=== PATIENT | female | born 1930 | race Caucasian/White ===

== ENCOUNTER 2016-09-18 16:17 | Inpatient (IN) ==
[2016-09-18] MEDS ORDERED: ONDANSETRON 4 MG/2 ML VIAL IV STA (16:39)
[2016-09-18] MEDS ORDERED: MORPHINE 2 MG/1 ML SYRINGE IV STA (16:39)
[2016-09-18] MEDS ORDERED: SODIUM CHLORIDE 0.9% 500 ML IV STA (16:39)
--- NOTE | 2016-09-18 16:45 | Emergency Department Note ---
Arrival - Arrival Chief Complaint: Extremity Injury ED Nursing Triage Note: pt falls a lot. pt's last fall was august 04 per senior living. pt has had pain to lt hip since sunday Mode of Arrival: Stretcher Limitations: No Limitations Source: Patient Time Seen by Provider: 09/18/16 16:28 - History of Present Illness HPI Narrative: The history is limited by the patient's dementia. The patient complains of left lower extremity pain after a fall. She states she fell Sunday and has had pain since. It is not clear from the senior living record exactly when she fell. She had an abrasion to the left forearm/elbow but denies any other injuries. She denies loss of consciousness but cannot tell me exactly what happened to cause her to fall. She does have a history of frequent falls.. She denies any fever, cough, nausea, vomiting or other recent illness or symptoms. Allergies/Adverse Reactions: Allergies Allergy/AdvReac Type Severity Reaction Status Date / Time No Known Allergies Allergy Unverified 03/31/16 10:24 Home Medications: Home Medications Medication Instructions Recorded Confirmed Type Aspirin [Ecotrin] 81 mg PO DAILY 01/25/15 01/25/15 History Carbidopa/Levodopa 25-250 [Sinemet 1 tablet PO TID 01/25/15 01/25/15 History 25-250] Methenamine Hippurate [Hiprex] 1,000 gm PO BID 01/25/15 01/25/15 History Levofloxacin Tab [Levaquin Tab] 500 mg PO DAILY 5 Days 01/27/15 Rx Methenamine Hippurate [Hiprex] 1 gm PO BID tablet 01/27/15 Rx Review of System - Review of System ROS unobtainable: due to mental status - Review of System Constitutional: Absent: fever Respiratory: Absent: cough, respiratory distress Cardiovascular: Absent: chest pain Gastrointestinal: Absent: nausea, vomiting Musculoskeletal: Present: leg pain. Absent: back pain, neck pain Medical,Surgical,& Family Hx - Medical History Cardio: History of: Hypertension (does not presently take meds) Neurology: History of: Dementia, Parkinson's Disease Rheumatology: History of;: Rheumatological Problems (Arthritis) Musculoskeletal: History of: Musculoskeletal Problems (arthritis) Hematology: History of: Anemia - Family History Family History: noncontributory - Social History Smoking Status: Never smoker Frequency of Alcohol Use: None Type of Drug Use: None Exam Physical Examination: GENERAL: Alert. No acute distress. HEENT: Normocephalic and atraumatic. PERRLA. EOMI. There is no nasal drainage. No pharyngeal erythema or exudate. NECK: Normal inspection. Nontender. Full range of motion without pain. LUNGS: No respiratory distress. Clear to auscultation bilaterally, no wheezes, rales or rhonchi. HEART: Regular rate and rhythm. ABDOMEN: Soft, nontender and nondistended with normoactive bowel sounds. Pelvis stable and nontender. BACK: Normal inspection. SKIN: Color normal. Warm and dry. EXTREMITIES: Mild tenderness over the left hip. No ecchymosis, swelling or deformity noted. The left lower extremity is shortened and externally rotated. She has pain on range of motion. The distal extremity is neurovascularly intact. The left hand is contracted due to arthritis. There is a small abrasion on the lateral aspect of the left elbow. No bleeding. No tenderness around the elbow. The remainder of the extremity exam is normal. NEUROLOGICAL/PSYCHIATRIC: Alert and oriented -2 with normal mood and affect. Cranial nerves normal. No gross motor or sensory deficit. Vital Signs: Vital Signs Temperature 97.6 F 09/18/16 16:21 Pulse Rate 89 09/18/16 16:21 Respiratory Rate 18 09/18/16 16:21 Blood Pressure 130/66 09/18/16 16:21 O2 Sat by Pulse Oximetry 99 09/18/16 16:21 Course - Reevaluation(s) Reevaluation #1: I have discussed patient with Dr. Andrea Ramirez and the hospitalist service. The hospitalist service will see and admit. Plan on surgery tomorrow. Lab work is still pending at this point. Time: 18:09 Results - Labs CBC & BMP: 09/18/16 18:03 09/18/16 18:03 Lab Results: I have reviewed the patients labs - Impressions Chest x-ray shows no acute abnormality. X-ray of the left hip shows a femoral neck fracture. EKG shows a normal sinus rhythm at 86. No other obvious abnormality but there is a poor baseline. Disposition Clinical Impression: Hip fracture, left, Dementia, Anemia Case discussed with: patient Disposition: Still a Patient Condition: Stable Time of Disposition: 18:10
[2016-09-18] MEDS ORDERED: MORPHINE 2 MG/1 ML SYRINGE ONE (17:37)
[2016-09-18] MEDS ORDERED: ONDANSETRON 4 MG/2 ML VIAL ONE (17:37)
--- NOTE | 2016-09-18 17:54 | EKG Report ---
Stationary ECG Study [facility] ER Test Date: 09/18/2016 5:55:17 PM Pat Name: TALIB CINTRON Department: Room: Gender: F Continuing Education Specialist: : [id number] Requested by: Minh Overton Order Number: [id number] Reading MD: BERNARDO CROSS Intervals [place] Rate: 86 P: 54 [place]: 162 QRS: 39 QRSD: 75 T: 22 QT: 340 QTc: 384 Interpretive Statements SINUS RHYTHM at 86 bpm [place] WP [employer] Electronically Signed On 09-19-16 07:22:38 CDT by BERNARDO CROSS [email or web address]
--- NOTE | 2016-09-18 18:06 | XRay Report ---
Portable chest. Indication: Respiratory preoperative. Comparison: July 16, 2015. The heart is normal in size. The pulmonary vasculature is normal. The right midlung field demonstrates linear atelectasis. The left lung base demonstrates linear atelectasis. No consolidation, pneumothorax, or pleural effusion. Stable osseous structures. Impression: Mild bilateral linear areas of atelectasis. PROCEDURE INTERPRETED AT [facility] DEPARTMENT OF RADIOLOGY Final Report Signed by: Dr. Ericka Torres
--- NOTE | 2016-09-18 18:07 | XRay Report ---
Left hip, 2 views. Indication: Fall with pain. Comparison: July 16, 2015. There is a complete acute fracture through the left femoral neck, with superior migration of the distal fracture fragment. The femoral head remains seated within the acetabulum. The osseous structures are diffusely demineralized. There is mild acetabular spurring. Impression: Acute left femoral neck fracture. PROCEDURE INTERPRETED AT [facility] [place] DEPARTMENT OF RADIOLOGY Final Report Signed by: Dr. Ericka Torres
[2016-09-18 18:10] LABS: Basophils % 0.5 % (0.0-0.8); Eosinophils # 0.3 10*3/uL (0.0-0.87); Eosinophils % 3.7 % (0.00-10.9); Hematocrit 28.9 VOL% (35.7-47.0); Hemoglobin 9.5 GM/DL (12.0-16.0); Immature Granulocytes % 0.9 %; Immature Granulocytes Absolute 0.07 #; Lymphocytes # 2.1 10*3/uL (1.4-4.0); Lymphocytes % 27.9 % (21.3-54.2); Mean Corpuscular HGB Conc 32.9 GM/DL (32-36); Mean Corpuscular Hemoglobin 30 PG (27-34); Mean Platelet Volume 8.7 FL (9.6-12.0); Monocytes # 0.7 10*3/uL (0.11-0.8); Monocytes % 8.7 % (1.7-12.7); Neutrophils # 4.4 10*3/uL (1.4-7.4); Neutrophils % 58.3 % (38.7-73.9); Platelet Count 405 T/CUMM (130-400); Red Blood Count 3.14 MC/CUMM (3.8-5.5); Red Cell Distribution Width 14.2 % (9.3-17.3); White Blood Count 7.6 T/CUMM (4-12)
[2016-09-18] MEDS ORDERED: ONDANSETRON 4 MG/2 ML VIAL IV PRN (18:20)
[2016-09-18] MEDS ORDERED: MORPHINE 2 MG/1 ML SYRINGE IV PRN (18:20)
[2016-09-18 18:23] LABS: INR 1.1; PT Patient Result 11.8 SECS; Partial Thromboplastin Time 29.3 SECS (0-40)
[2016-09-18 18:37] LABS: Osmolality,Calculated 278.7 MOS/KG (273-304); Potassium 4.4 MMOL/L (3.5-5.1)
--- NOTE | 2016-09-18 19:11 | Hospitalist History & Physical ---
Assessment and Plan (1) Status post fall Status: Acute Current Visit: Yes (2) Fracture of femoral neck, left Status: Acute Current Visit: Yes Qualifiers: Encounter type: initial encounter Fracture type: closed Qualified Code(s) : S72.002A - Fracture of unspecified part of neck of left femur, initial encounter for closed fracture (3) Severe dementia Status: Acute Current Visit: Yes (4) Parkinsons disease Status: Acute Current Visit: Yes (5) Anemia of chronic disease Status: Acute Assessment and plan: Plan: Continue pain control, orthopedics has been consulted probable surgery in a.m. Hold aspirin Continue remainder of her daily medications No acute cardiopulmonary issues that would hold up surgery Awaiting UA and culture, treat UTI if needed Current Visit: Yes (6) Acute UTI Status: Acute Current Visit: Yes History of Present Illness Chief complaint: Fall with left hip pain History of present illness: Ms. Hughes is a 85 year old female who has a resident of [facility] in [place], who has severe dementia, Parkinson's disease, depression who reportedly fell today at the long-term with resultant left femoral neck fracture. No precedent chest pain, shortness of breath, palpitations. No head trauma. The patient is a very poor historian and has poor recall of recent events. There is also report of recent UTI the patient is on Levaquin at the long-term. We are awaiting a urine specimen. At this time patient reports relief of her hip pain. Previously she reported "maybe 6 or 7 out of 10." She denies nausea vomiting or diarrhea. Home Medications Medication Instructions Recorded Confirmed Type Aspirin [Ecotrin] 81 mg PO DAILY 01/25/15 01/25/15 History Carbidopa/Levodopa 25-250 [Sinemet 1 tablet PO TID 01/25/15 01/25/15 History 25-250] Methenamine Hippurate [Hiprex] 1,000 gm PO BID 01/25/15 01/25/15 History Levofloxacin Tab [Levaquin Tab] 500 mg PO DAILY 5 Days 01/27/15 Rx Methenamine Hippurate [Hiprex] 1 gm PO BID tablet 01/27/15 Rx Allergies Allergy/AdvReac Type Severity Reaction Status Date / Time No Known Allergies Allergy Unverified 03/31/16 10:24 Medical,Surgical,& Family Hx - Medical History Cardio: History of: Hypertension (does not presently take meds) Neurology: History of: Dementia, Parkinson's Disease Endocrine: No history of: Diabetes Mellitus (NIDDM) Rheumatology: History of;: Rheumatological Problems (Osteo-arthritis) Musculoskeletal: History of: Musculoskeletal Problems (arthritis) Hematology: History of: Anemia - Surgical History Additional Surgical History: Denies surgical history - Family History Family History: Reports;: Family Hypertension - Social History Smoking Status: Never smoker Frequency of Alcohol Use: None Type of Drug Use: None Marital Status: Unknown Lives With:: [facility] Functional capacity: wheelchair bound (Poor mobility at baseline) Review of systems: A 12 point review of systems is negative except as specified in the HPI Exam - Constitutional Vitals: Period Temp Pulse Resp BP Sys/Kathleen Pulse Ox Last 24 Hr 97.6 F-97.6 F 89-89 18-18 130-130/66-66 99 Exam: EXAM: CONSTITUTIONAL: non toxic, NAD HEENT: NC, AT, OP benign, SHU, EOMI CV: RRR no m/g/r RESP: clear B/L, no w/r/r GI: abd soft, NT, ND, +bowel sounds INTEGUMENTARY: no lesions or rash EXTREMITIES: Left lower extremity externally rotated, pedal pulses intact NEURO: no focal deficits PSYCH: Pleasantly demented Results - Labs CBC & BMP: 09/18/16 18:03 09/18/16 18:03 Lab Results: I have reviewed the past 24 hour labs - EKG EKG shows: sinus rhythm - Diagnostic Findings Procedure: Chest x-ray: image reviewed by me, report reviewed by me, X-ray: image reviewed by me, report reviewed by me Quality Measures - VTE Contraindication to Pharmacological VTE Prophylaxis: High Risk of Bleeding
[2016-09-18] MEDS: SODIUM CHLORIDE 0.9% 1,000 ML IV SCH (21:28)
[2016-09-18] MEDS: METHENAMINE HIPPURATE 1 GM TABLET PO SCH ×2 (21:29→21:35)
[2016-09-18] MEDS: CARBIDOPA/LEVODOPA 25-250 MG TABLET PO SCH (21:29)
[2016-09-19 06:06] LABS: Basophils % 0.7 % (0.0-0.8); Eosinophils # 0.2 10*3/uL (0.0-0.87); Eosinophils % 3.4 % (0.00-10.9); Hematocrit 28.2 VOL% (35.7-47.0); Hemoglobin 9.3 GM/DL (12.0-16.0); Immature Granulocytes % 0.7 %; Immature Granulocytes Absolute 0.04 #; Lymphocytes # 1.8 10*3/uL (1.4-4.0); Lymphocytes % 32.6 % (21.3-54.2); Mean Corpuscular Hemoglobin 30 PG (27-34); Mean Corpuscular Volume 91.9 FL (87-102); Mean Platelet Volume 9.2 FL (9.6-12.0); Monocytes # 0.5 10*3/uL (0.11-0.8); Monocytes % 9.3 % (1.7-12.7); Neutrophils % 53.3 % (38.7-73.9); Platelet Count 375 T/CUMM (130-400); Red Blood Count 3.07 MC/CUMM (3.8-5.5); Red Cell Distribution Width 14.2 % (9.3-17.3); White Blood Count 5.6 T/CUMM (4-12)
[2016-09-19 06:38] LABS: Albumin 2.3 G/DL (3.4-5.0); Bilirubin,Total 0.6 MG/DL (0.2-1.0); Calcium 8.4 MG/DL (8.5-10.1); Magnesium 2.2 MG/DL (1.8-2.4); Potassium 4.5 MMOL/L (3.5-5.1); Total Protein 5.3 G/DL (6.4-8.3)
--- NOTE | 2016-09-19 07:07 | XRay Report ---
Exam: XR chest 1V portable Indication: Shortness of breath Comparison study: 09/18/2016 radiograph Findings: The heart, mediastinum and bony structures are stable from prior. Chronic interstitial changes appear similar to prior. There is no focal consolidation, pneumothorax or pleural effusion identified. Impression: No acute cardiopulmonary process. Chronic interstitial changes. Otherwise, no significant change. PROCEDURE INTERPRETED AT [facility] DEPARTMENT OF RADIOLOGY Final Report Signed by: Bennett Mendez
--- NOTE | 2016-09-19 07:21 | Orthopedic Consult Note ---
History of Present Illness Chief complaint: Left hip fracture History of present illness: Ms. Hughes is a 85 year old female admitted to the hospitalist service following a fall at her local nursing facility reportedly she has had frequent falls does attempt to mobilize with the history is difficult to obtain secondary to underlying dementia after falling yesterday acute onset left hip pain was noted she was brought [facility] emergency room or fracture fractured femoral neck was revealed on plain film. No other injuries or complaints she has been admitted to the medical service. I was asked to evaluate regarding orthopedic injury Examination thin white female she is awake and pleasant however she does appear somewhat confused on questioning she does report that she does mobilize seems somewhat unsure she has no complaints of pain about with range of motion but either upper extremity are about the right lower there is marked discomfort with gentle internal and external rotation about the left hip is no obvious pain or crepitation with the femur need to febrile ankle she will actively flex and extend the toes radiographs confirm a displaced femoral neck fracture left hip. Impression: Femoral neck fracture left hip Plan: I discussed with her the diagnosis and treatment options including indication for endoprosthetic replacement this will allow her to be more comfortable in the bed allow nursing care to be most appropriate also start mobilizing bed to chair. Attempts will be made to locate the next of kin to obtained to let them know and further discuss consent. She will be held n.p.o. this morning for possible endoprosthesis left hip Home Medications Medication Instructions Recorded Confirmed Type Aspirin [Ecotrin] 81 mg PO DAILY 01/25/15 01/25/15 History Carbidopa/Levodopa 25-250 [Sinemet 1 tablet PO TID 01/25/15 01/25/15 History 25-250] Methenamine Hippurate [Hiprex] 1,000 gm PO BID 01/25/15 01/25/15 History Levofloxacin Tab [Levaquin Tab] 500 mg PO DAILY 5 Days 01/27/15 Rx Methenamine Hippurate [Hiprex] 1 gm PO BID tablet 01/27/15 Rx Allergies Allergy/AdvReac Type Severity Reaction Status Date / Time No Known Allergies Allergy Unverified 03/31/16 10:24 Medical,Surgical,& Family Hx - Medical History Cardio: History of: Hypertension (does not presently take meds) Neurology: History of: Dementia, Parkinson's Disease Endocrine: No history of: Diabetes Mellitus (NIDDM) Rheumatology: History of;: Rheumatological Problems (Osteo-arthritis) Musculoskeletal: History of: Musculoskeletal Problems (arthritis) Hematology: History of: Anemia - Family History Family History: Reports;: Family Hypertension - Social History Smoking Status: Never smoker Frequency of Alcohol Use: None Type of Drug Use: None Exam - Constitutional Vitals: Period Temp Pulse Resp BP Sys/Kathleen Pulse Ox Last 24 Hr 97.4 F-98.0 F 80-89 16-18 130-152/61-79 98-99 Results - Labs CBC & BMP: 09/19/16 04:17 09/19/16 04:17
[2016-09-19 07:32] LABS: Apearance,Urine Slightly Hazy (Clear); Bacteria,Urine Few /HPF (Few); Bilirubin,Urine Negative (Negative); Blood, Urine Small mg/dL (Negative); Glucose,Urine (UA) Negative (Negative); Ketones,Urine Negative (Negative); Mucus,Urine Occasional /LPF (Occasional); Nitrite,Urine Positive (Negative); Protein,Urine Negative; RBC,Urine 3 /HPF (0-4); Squamous Epithelial Cell,Urine Occasional /HPF (0-10); Urine Color Yellow (Yellow); Urine Specific Gravity 1.006 (1.001-1.035); Urine Urobilinogen < 2.0 EU/DL (0.2-1.0); WBC,Urine 17 /HPF (0-6)
[2016-09-19] MEDS: METHENAMINE HIPPURATE 1 GM TABLET PO SCH ×2 (08:35→21:56)
[2016-09-19] MEDS: CARBIDOPA/LEVODOPA 25-250 MG TABLET PO SCH ×3 (08:35→21:56)
--- NOTE | 2016-09-19 08:37 | Hospitalist Progress Note ---
Assessment and Plan (1) Fracture of femoral neck, left Status: Acute Assessment and plan: History of orthostatic episodes with frequent falls. Current Visit: Yes Qualifiers: Encounter type: initial encounter Fracture type: closed Qualified Code(s) : S72.002A - Fracture of unspecified part of neck of left femur, initial encounter for closed fracture (2) Severe dementia Status: Chronic Assessment and plan: Associated movement disorder with falls. Prior neurologic evaluation with imaging 18 months ago showed only small vessel disease. Current Visit: Yes Hospitalist: Subjective Interval history: 85-year-old female with severe dementia movement disorder who fell at a nursing care facility with a left femoral neck fracture. Patient has a long history of orthostatic dizziness with several prior visits related to falls. In January 2015 the patient had an extensive neurologic evaluation including MRI imaging showing only small vessel disease. She has been seen by orthopedics and consent for surgical intervention is requested. Patient has a history of chronic recurrent urinary tract infections and was on active treatment at the time of admission. Her vital signs were stable overnight. She is alert this morning but confused as I recall this is her baseline. Exam - Constitutional Vitals: Period Temp Pulse Resp BP Sys/Kathleen Pulse Ox Last 24 Hr 97.4 F-98.6 F 80-89 14-18 127-152/61-84 97-99 General appearance: under weight - Respiratory Respiratory exam: Present: clear to auscultation bilaterally. Absent: rales, rhonchi, wheezes - Cardiovascular Cardiovascular exam: Present: regular rate and rhythm - GI/Abdominal GI/Abdominal exam: Present: normal bowel sounds. Absent: tenderness - Extremities Exam Extremities exam: Absent: edema - Neurological Exam Neurological exam: Present: alert. Absent: oriented X3 Results - Labs CBC & BMP: 09/19/16 04:17 09/19/16 04:17 Quality Measures - VTE Contraindication to Pharmacological VTE Prophylaxis: High Risk of Bleeding
[2016-09-19] MEDS ORDERED: PROPOFOL 200 MG/20 ML VIAL IV ONE (12:35)
[2016-09-19] MEDS ORDERED: ONDANSETRON 4 MG/2 ML VIAL ONE (12:35)
[2016-09-19] MEDS ORDERED: NEOSTIGMINE 10 MG/10 ML VIAL ONE (12:35)
[2016-09-19] MEDS ORDERED: PHENYLEPHRINE 1 MG/10 ML SYRINGE IV ONE (12:35)
[2016-09-19] MEDS ORDERED: LIDOCAINE 2% 5 ML VIAL ONE (12:35)
[2016-09-19] MEDS ORDERED: ROCURONIUM 100 MG/10 ML VIAL IV ONE (12:35)
[2016-09-19] MEDS ORDERED: GLYCOPYRROLATE 0.4 MG/2 ML VIAL ONE (12:35)
[2016-09-19] MEDS ORDERED: MAGNESIUM HYDROXIDE SUSP 30 ML UDCUP PO PRN (13:03)
[2016-09-19] MEDS ORDERED: TEMAZEPAM 7.5 MG CAPSULE PO PRN (13:03)
[2016-09-19] MEDS ORDERED: diphenhydrAMINE CAP 25 MG CAPSULE PO PRN (13:03)
[2016-09-19] MEDS ORDERED: PROMETHAZINE 25 MG/1 ML VIAL IM PRN (13:03)
--- NOTE | 2016-09-19 14:38 | Orthopedic Progress Note ---
Orthopedics - Subjective Interval history: Discussed with his on postop did well discuss postoperative plan he understands and agrees. Exam - Constitutional Vitals: Period Temp Pulse Resp BP Sys/Kathleen Pulse Ox Last 24 Hr 97.4 F-99.0 F 80-95 14-20 127-158/61-84 97-99 Results - Labs CBC & BMP: 09/19/16 04:17 09/19/16 04:17 Quality Measures - VTE Contraindication to Pharmacological VTE Prophylaxis: High Risk of Bleeding
[2016-09-19] MEDS ORDERED: LACTATED RINGERS 1,000 ML IV ONE (14:40)
[2016-09-19] MEDS ORDERED: SEVOFLURANE 1 UNIT/15 MINUTE INH ONE (14:40)
[2016-09-19] MEDS ORDERED: fentaNYL 100 MCG/2 ML VIAL ONE (14:40)
[2016-09-19] MEDS ORDERED: ACETAMINOPHEN 1,000 MG/100 ML VIAL IV ONE (14:40)
[2016-09-19] MEDS ORDERED: ONDANSETRON 4 MG/2 ML VIAL IV PRN (14:53)
[2016-09-19] MEDS ORDERED: HYDROmorphone 2 MG/1 ML VIAL IV PRN (14:53)
[2016-09-19] MEDS ORDERED: LACTATED RINGERS 1,000 ML IV SCH (15:00)
--- NOTE | 2016-09-19 15:30 | XRay Report ---
XR hip 1V LT Indication: Left SAIGE. Left hip one view: Since yesterday, the patient has undergone left SAIGE. Alignment is anatomic. No periprosthetic fracture. Surgical drains, skin rachel overlie the operative site. Impression: Anatomic alignment following left SAIGE. PROCEDURE INTERPRETED AT [facility] DEPARTMENT OF RADIOLOGY Final Report Signed by: Drew Leahy M.D.
[2016-09-19] MEDS: SODIUM CHLORIDE 0.9% 1,000 ML IV SCH (16:10)
[2016-09-19] MEDS: RIVASTIGMINE 3 MG CAPSULE PO SCH (17:00)
--- NOTE | 2016-09-19 21:30 | Operative Note ---
DATE OF SURGERY: 09/19/2016 PREOPERATIVE DIAGNOSIS: FEMORAL NECK FRACTURE, LEFT HIP. POSTOPERATIVE DIAGNOSIS: SAME. OPERATIVE PROCEDURE: Bipolar, left hip. SURGEON: Jay Mendez Jr., MD ANESTHESIA: General. INDICATIONS: An 85-year-old white female, resident of a local nursing facility, is a poor ambulator, reportedly had fallen in the recent days. Her son reports probably more like a few weeks ago. She presented to [facility] Emergency Room yesterday with acute onset of hip pain. Radiographs confirmed a displaced femoral neck fracture. I discussed with she and her family the indications for operativ e repair. OPERATIVE PROCEDURE: The patient was taken to the operating room and under general anesthetic, posit ioned in the right lateral decubitus position. The left hip and lower extremity prepped and draped i n usual sterile manner. She received Ancef preoperatively. A curvilinear incision was made over the posterolateral aspect of the left hip. Sharp dissection was carried down through the skin and subcu taneous tissue. The IT band and gluteus were split. The hip was internally rotated, and the short r otators and capsule were reflected off the back of the proximal femur and tagged for later repair. T he femoral neck cut was freshened with a saw, the head removed and sized to a 48, sequential reamings and broachings of the canal, ultimately selecting a basic hip fracture stem size 2 for cementation. A +5 head for the bipolar head was selected as well. The trial components were removed using standa rd techniques. The femoral stem was cemented into place. After the cement hardened, the +5 and bipo lar were secured on the taper and relocated. The hip was stable through range of motion. The wounds were then irrigated and closed in a standard fashion over two 1/8-inch Hemovac drains using #1 Vicry l for the capsule and gluteal layers, 2-0 Vicryl for subcutaneous layers and staple for skin. DRAINS: x2 COUNTS: Correct. ESTIMATED BLOOD LOSS: 100 mL. Of note, clinical impression was the fracture was subacute likely a couple of weeks old based on the lack of hematoma.
[2016-09-19] MEDS: DOCUSATE SODIUM 100 MG CAPSULE PO SCH (21:56)
[2016-09-20] MEDS: FONDAPARINUX 2.5 MG/0.5 ML SYRINGE SUBCUT SCH (06:19)
[2016-09-20 06:23] LABS: Basophils % 0.4 % (0.0-0.8); Eosinophils # 0.1 10*3/uL (0.0-0.87); Eosinophils % 1.8 % (0.00-10.9); Hematocrit 23.7 VOL% (35.7-47.0); Hemoglobin 7.7 GM/DL (12.0-16.0); Immature Granulocytes % 1.4 %; Lymphocytes # 1.4 10*3/uL (1.4-4.0); Lymphocytes % 19.1 % (21.3-54.2); Mean Corpuscular HGB Conc 32.5 GM/DL (32-36); Mean Corpuscular Hemoglobin 30 PG (27-34); Mean Corpuscular Volume 93.3 FL (87-102); Mean Platelet Volume 8.9 FL (9.6-12.0); Monocytes # 0.7 10*3/uL (0.11-0.8); Monocytes % 9.2 % (1.7-12.7); Neutrophils % 68.1 % (38.7-73.9); Platelet Count 288 T/CUMM (130-400); Red Blood Count 2.54 MC/CUMM (3.8-5.5); Red Cell Distribution Width 14.1 % (9.3-17.3); White Blood Count 7.4 T/CUMM (4-12)
[2016-09-20 06:51] LABS: Calcium 8.3 MG/DL (8.5-10.1); Osmolality,Calculated 281.3 MOS/KG (273-304)
[2016-09-20] MEDS ORDERED: SODIUM CHLORIDE 0.9% 250 ML IV PRN (08:58)
--- NOTE | 2016-09-20 08:58 | Orthopedic Progress Note ---
Orthopedics - Subjective Interval history: Drain removed comfortable hemoglobin 7.7 this morning will need 2 units PRBCs secondary to perioperative blood loss anemia overlying chronic anemia. Will work on starting bed to chair transfers as well. Exam - Constitutional Vitals: Period Temp Pulse Resp BP Sys/Kathleen Pulse Ox Last 24 Hr 97.3 F-99.0 F 68-95 14-20 100-160/47-75 94-100 Results - Labs CBC & BMP: 09/20/16 06:09 09/20/16 06:09 Quality Measures - VTE Contraindication to Pharmacological VTE Prophylaxis: High Risk of Bleeding
[2016-09-20] MEDS: RIVASTIGMINE 3 MG CAPSULE PO SCH ×2 (09:07→16:07)
[2016-09-20] MEDS: DOCUSATE SODIUM 100 MG CAPSULE PO SCH ×2 (09:08→21:03)
[2016-09-20] MEDS: MULTIVITAMIN (CENTRUM) TABLET PO SCH (09:08)
[2016-09-20] MEDS: METHENAMINE HIPPURATE 1 GM TABLET PO SCH ×2 (09:08→21:03)
[2016-09-20] MEDS: ASPIRIN EC 81 MG TABLET PO SCH (09:08)
[2016-09-20] MEDS: CARBIDOPA/LEVODOPA 25-250 MG TABLET PO SCH ×3 (09:08→21:03)
[2016-09-20] MEDS: ESCITALOPRAM 10 MG TABLET PO SCH (09:08)
--- NOTE | 2016-09-20 09:32 | Hospitalist Progress Note ---
Assessment and Plan (1) Fracture of femoral neck, left Status: Acute Assessment and plan: History of orthostatic episodes with frequent falls. Current Visit: Yes Qualifiers: Encounter type: initial encounter Fracture type: closed Qualified Code(s) : S72.002A - Fracture of unspecified part of neck of left femur, initial encounter for closed fracture (2) Severe dementia Status: Chronic Assessment and plan: Associated movement disorder with falls. Prior neurologic evaluation with imaging 18 months ago showed only small vessel disease. 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 She has a long history of orthostatic dizziness and frequent falls. Her vital signs overnight were stable she is awake and alert. She is anticipated for transfusion today for postoperative anemia. Exam - Constitutional Vitals: Period Temp Pulse Resp BP Sys/Kathleen Pulse Ox Last 24 Hr 97.3 F-99.0 F 68-95 14-20 100-160/47-75 94-100 General appearance: under weight - Respiratory Respiratory exam: Present: clear to auscultation bilaterally. Absent: rales, rhonchi, wheezes - Cardiovascular Cardiovascular exam: Present: regular rate and rhythm - GI/Abdominal GI/Abdominal exam: Present: normal bowel sounds. Absent: tenderness - Extremities Exam Extremities exam: Absent: edema - Neurological Exam Neurological exam: Present: alert. Absent: oriented X3 Results - Labs CBC & BMP: 09/20/16 06:09 09/20/16 06:09 Quality Measures - VTE Contraindication to Pharmacological VTE Prophylaxis: High Risk of Bleeding
--- NOTE | 2016-09-20 13:33 | Pathology Report from [facility] ---
[facility] [place] ACCESSION # : [id number] PATIENT NAME : Talib Hughes ORDERING DR : TOÑITO LANZA JR, MD CLINICAL HX: Fractured left hip POST-OP DX: Same SPECIMEN INFO: Left hip/femur head tissue GROSS DESCRIPTION: The specimen is received in formalin labeled with the patients name and consists of a fractured femoral head measuring 4.5 x 4.5 x 3.8 cm. The articular surface is predominately smooth, hardin with scattered chalky white areas noted. The area of fracture is shaggy and hyperemic with no softening appreciated. Business Risk Consultant tissue submitted in one cassette following decalcification. DIAGNOSIS FOR TALIB HUGHES: LIP FEMORAL HEAD TISSUE: Trabecular bone with hemorrhagic marrow consistent with clinical history of fracture. No evidence of malignancy. COLLECTED DATE: 09/19/2016 [facility] REPORT DATE: 09/20/2016 ELECTRONICALLY SIGNED BY: Keren Ardon III, M.D. 09/20/2016 - 8:49:05 MTDKamilah
[2016-09-20] MEDS: SODIUM CHLORIDE 0.9% 1,000 ML IV SCH ×2 (15:55→19:30)
[2016-09-21 05:05] LABS: Basophils # 0.1 10*3/uL (0.0-0.2); Basophils % 0.5 % (0.0-0.8); Eosinophils # 0.2 10*3/uL (0.0-0.87); Eosinophils % 1.8 % (0.00-10.9); Hematocrit 32.3 VOL% (35.7-47.0); Immature Granulocytes % 1.3 %; Immature Granulocytes Absolute 0.13 #; Lymphocytes # 1.6 10*3/uL (1.4-4.0); Lymphocytes % 16.6 % (21.3-54.2); Mean Corpuscular HGB Conc 34.1 GM/DL (32-36); Mean Corpuscular Hemoglobin 31 PG (27-34); Mean Corpuscular Volume 90.5 FL (87-102); Mean Platelet Volume 9.3 FL (9.6-12.0); Monocytes # 0.9 10*3/uL (0.11-0.8); Monocytes % 8.8 % (1.7-12.7); Neutrophils # 6.9 10*3/uL (1.4-7.4); Platelet Count 254 T/CUMM (130-400); Red Blood Count 3.57 MC/CUMM (3.8-5.5); Red Cell Distribution Width 14.1 % (9.3-17.3); White Blood Count 9.7 T/CUMM (4-12)
[2016-09-21] MEDS: FONDAPARINUX 2.5 MG/0.5 ML SYRINGE SUBCUT SCH (06:16)
[2016-09-21] MEDS: CYANOCOBALAMIN 1000 MCG/1 ML VIAL IM SCH ×45 (06:23→07:13)
--- NOTE | 2016-09-21 09:08 | Hospitalist Progress Note ---
Assessment and Plan (1) Fracture of femoral neck, left Status: Acute Assessment and plan: History of orthostatic episodes with frequent falls. Surgical repair 19 September Current Visit: Yes Qualifiers: Encounter type: initial encounter Fracture type: closed Qualified Code(s) : S72.002A - Fracture of unspecified part of neck of left femur, initial encounter for closed fracture (2) Severe dementia Status: Chronic Assessment and plan: Associated movement disorder with falls. Prior neurologic evaluation with imaging 18 months ago showed only small vessel disease. Current Visit: Yes (3) UTI (urinary tract infection) Status: Chronic Assessment and plan: Multiply recurrent with multiple courses of treatment. Current culture positive for gram-negative rods sensitivities and identification pending. 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 She has had a chronic recurrent urinary tract infection with several courses of outpatient treatment and currently has a gram-negative joon on urine culture. Patient was transfused yesterday with appropriate response in her hemoglobin level. Vital signs are stable overnight. Exam - Constitutional Vitals: Period Temp Pulse Resp BP Sys/Kathleen Pulse Ox Last 24 Hr 97.0 F-99.9 F 50-104 16-100 99-177/58-115 95-99 General appearance: under weight - Respiratory Respiratory exam: Present: clear to auscultation bilaterally. Absent: rales, rhonchi, wheezes - Cardiovascular Cardiovascular exam: Present: regular rate and rhythm - GI/Abdominal GI/Abdominal exam: Present: normal bowel sounds. Absent: tenderness - Extremities Exam Extremities exam: Absent: edema - Neurological Exam Neurological exam: Present: alert. Absent: oriented X3 Results - Labs CBC & BMP: 09/21/16 03:06 09/20/16 06:09 Labs: Urine culture gram-negative joon identification and sensitivity pending Quality Measures - VTE Contraindication to Pharmacological VTE Prophylaxis: High Risk of Bleeding
[2016-09-21] MEDS: METHENAMINE HIPPURATE 1 GM TABLET PO SCH ×2 (10:08→21:43)
[2016-09-21] MEDS: RIVASTIGMINE 3 MG CAPSULE PO SCH ×2 (10:08→16:11)
[2016-09-21] MEDS: CARBIDOPA/LEVODOPA 25-250 MG TABLET PO SCH ×3 (10:08→21:43)
[2016-09-21] MEDS: DOCUSATE SODIUM 100 MG CAPSULE PO SCH ×2 (10:08→21:43)
[2016-09-21] MEDS: MULTIVITAMIN (CENTRUM) TABLET PO SCH (10:09)
[2016-09-21] MEDS: ASPIRIN EC 81 MG TABLET PO SCH (10:09)
[2016-09-21] MEDS: SODIUM CHLORIDE 0.9% 1,000 ML IV SCH (10:09)
[2016-09-21] MEDS: ESCITALOPRAM 10 MG TABLET PO SCH (10:09)
--- NOTE | 2016-09-21 13:22 | Orthopedic Progress Note ---
Orthopedics - Subjective Interval history: Hemoglobin 11 comfortable mobilizing bed to chair believe she can most likely go back to the [facility] tomorrow this weekend Exam - Constitutional Vitals: Period Temp Pulse Resp BP Sys/Kathleen Pulse Ox Last 24 Hr 97.7 F-99.6 F 50-104 16-100 99-177/59-115 95-99 Results - Labs CBC & BMP: 09/21/16 03:06 09/20/16 06:09 Quality Measures - VTE Contraindication to Pharmacological VTE Prophylaxis: High Risk of Bleeding
[2016-09-22 05:58] LABS: Basophils % 0.2 % (0.0-0.8); Eosinophils # 0.4 10*3/uL (0.0-0.87); Eosinophils % 4.4 % (0.00-10.9); Hematocrit 29.6 VOL% (35.7-47.0); Hemoglobin 10.1 GM/DL (12.0-16.0); Immature Granulocytes % 1.2 %; Lymphocytes # 1.7 10*3/uL (1.4-4.0); Lymphocytes % 21.3 % (21.3-54.2); Mean Corpuscular HGB Conc 34.1 GM/DL (32-36); Mean Corpuscular Hemoglobin 31 PG (27-34); Mean Corpuscular Volume 91.1 FL (87-102); Monocytes # 0.7 10*3/uL (0.11-0.8); Monocytes % 8.4 % (1.7-12.7); Neutrophils # 5.2 10*3/uL (1.4-7.4); Neutrophils % 64.5 % (38.7-73.9); Platelet Count 250 T/CUMM (130-400); Red Blood Count 3.25 MC/CUMM (3.8-5.5); Red Cell Distribution Width 14.8 % (9.3-17.3)
[2016-09-22] MEDS: FONDAPARINUX 2.5 MG/0.5 ML SYRINGE SUBCUT SCH (06:07)
--- NOTE | 2016-09-22 08:26 | Orthopedic Progress Note ---
Orthopedics - Subjective Interval history: ok from ortho for dc Exam - Constitutional Vitals: Period Temp Pulse Resp BP Sys/Kathleen Pulse Ox Last 24 Hr 97.3 F-98.9 F 78-92 16-20 120-144/57-68 95-99 Results - Labs CBC & BMP: 09/22/16 05:43 09/20/16 06:09 Quality Measures - VTE Contraindication to Pharmacological VTE Prophylaxis: High Risk of Bleeding Specialty Discharge - Follow Up or Referrals Follow up with: Jay Mendez Jr., MD [Physician] - (mobile x-ray follow-up sent to dr. radha corley office in 4 weeks for review and further orders)
[2016-09-22] MEDS: DOCUSATE SODIUM 100 MG CAPSULE PO SCH (10:23)
[2016-09-22] MEDS: MULTIVITAMIN (CENTRUM) TABLET PO SCH (10:23)
[2016-09-22] MEDS: ASPIRIN EC 81 MG TABLET PO SCH (10:23)
[2016-09-22] MEDS: RIVASTIGMINE 3 MG CAPSULE PO SCH (10:23)
[2016-09-22] MEDS: CARBIDOPA/LEVODOPA 25-250 MG TABLET PO SCH ×2 (10:24→15:14)
[2016-09-22] MEDS: METHENAMINE HIPPURATE 1 GM TABLET PO SCH (10:24)
[2016-09-22] MEDS: ESCITALOPRAM 10 MG TABLET PO SCH (10:24)
--- NOTE | 2016-09-22 11:35 | Discharge Summary ---
Hospital Course - Hospital Course Hospital Course: 85 year old female who is a resident of [facility] in [place], with h/o severe dementia, Parkinson's disease, depression who reportedly fell at the shelter with resultant left femoral neck fracture. Due to severe dementia, she had poor recall of recent events. Orthopedics were consulted because of her hip fracture. She underwent hip surgery and had an unremarkable postoperative course. She had acute anemia of surgical blood loss and was transfused with packed red blood cells and her hematocrit remained stable. Orthopedics has seen her and are recommending discharge back to shelter. She received DVT prophylaxis with Arixtra in the hospital and will be continued for about total of 35 days at the shelter. There was also report of recent UTI and the patient was on Levaquin at the shelter. She has a history of recurrent UTIs. Patient is otherwise stable to be discharged back to shelter. - Time spent with patient Time with patient DS: Less than 30 minutes Diagnosis - Discharge Diagnosis (1) Dementia Status: Chronic (2) Hip fracture, left Status: Resolved Specialty Discharge - Follow Up or Referrals Follow up with: Jay Mendez Jr., MD [Physician] - (mobile x-ray follow-up sent to dr. radha corley office in 4 weeks for review and further orders) Discharge Plan - Discharge Data Disposition: Disch/Xfer to Snf Condition at Discharge: Stable Discharge Diet: regular diet Activity: resume usual activities as tolerated Hygiene: no restrictions Weight Bearing at Discharge: weight bear as tolerated - Discharge Medications New Docusate Sodium Cap [Colace Cap] 100 mg PO BID capsule Fondaparinux [Arixtra] 2.5 mg SUBCUT Q24H #30 syringe HYDROcodone/ACETAMIN 5-325 [Forrest 5-325] 1 tablet PO Q4H PRN #30 tablet PRN Reason: Pain Moderate (4-7) Magnesium Hydroxide Susp [Milk of Magnesia] 30 ml PO Q6H PRN #1 bottle PRN Reason: Constipation Methenamine Hippurate [Hiprex] 1 gm PO BID #60 tablet Continue Carbidopa/Levodopa 25-250 [Sinemet 25-250] 1 tablet PO TID Aspirin [Ecotrin] 81 mg PO DAILY Multivitamin (Centrum) [Centrum Tab] 1 tablet PO DAILY Escitalopram Oxalate [Lexapro] 5 mg PO DAILY Cyanocobalamin Inj [Vitamin B12 Inj] 1,000 mcg IM Q90D Rivastigmine Cap [Exelon Cap] 3 mg PO BID W/MEALS - Follow Up or Referral Follow Up: Jay Mendez Jr., MD [Physician] - (mobile x-ray follow-up sent to dr. radha corley office in 4 weeks for review and further orders) - Forms/Instructions Instructions: Hip Fracture (GEN) Exam - Constitutional Vitals: Period Temp Pulse Resp BP Sys/Kathleen Pulse Ox Last 24 Hr 96.9 F-97.9 F 78-88 16-18 120-161/57-79 95-99 General appearance: normal weight, no acute distress - Head Head exam: Present: normal inspection, normocephalic, atraumatic - Eye Eye exam: Present: EOMI Pupils: Present: SHU - ENT ENT exam: Present: normal exam - Neck Neck exam: Present: normal inspection - Respiratory Respiratory exam: Present: clear to auscultation bilaterally - Cardiovascular Cardiovascular exam: Present: regular rate and rhythm - GI/Abdominal GI/Abdominal exam: Present: normal bowel sounds - Extremities Exam Extremities exam: Present: normal inspection - Back Exam Back exam: Present: normal inspection - Skin Skin exam: Present: normal color, warm Discharge Results Labs on day of discharge: Labs from last 24 hours 09/22/16 05:43 WBC 8.0 RBC 3.25 L Hgb 10.1 L Hct 29.6 L MCV 91.1 MCH 31 MCHC 34.1 RDW 14.8 Plt Count 250 MPV 9.0 L Neut % (Auto) 64.5 Lymph % (Auto) 21.3 [place] % (Auto) 8.4 Eos % (Auto) 4.4 Baso % (Auto) 0.2 Neut # (Auto) 5.2 Lymph # (Auto) 1.7 [place] # (Auto) 0.7 Eos # (Auto) 0.4 Baso # (Auto) 0.0 Immature Gran % 1.2 Nucleated RBC % 0.0 Immature Gran # 0.10 Nucleated RBCs # 0.00 - Imaging and Cardiology Procedure: X-ray: report reviewed by me (Anatomic alignment following left SAIGE on Hip X-ray.) DS: Provider Date of admission: 09/18/16 18:17 Primary care physician: . No PCP Attending physician on admission: Moisés Hernandez DO Consults: 07/10/17 18:20 Consult to Physician [CONS] Routine Comment: Consulting Provider: Jay Mendez Jr. Consulting Provider Notified: Yes When should Consulting Provider be notified: Now Person Notified: garrett called Date Notified: 09/19/16 Time Notified: 08:01 Consult Notification Comment: Dr Radha Schwab called and he said he was notified about the pt in er and he would see him in the morning 09/19/16 13:03 Consult to Case Mgmt/Social Srvs [CONS] Routine Reason for Case Mgmt/Social Srvs: Rehab Home Health Equipment Consult Comment: Bedside Commode, CPM, Walker Consult to Occupational Therapy [CONS] Routine Reason for Occupational Therapy: Evaluate and Treat Consult Comment: ADL's Consult to Physical Therapy [CONS] Routine Reason for Physical Therapy: Evaluate and Treat Gait Training Discharging clinician: Keith Parra MD
[2016-09-22 11:45] VITALS: BP 184/89
[2016-09-22] MEDS ORDERED: BISACODYL 10 MG SUPP RECTAL ONE (13:05)
[2016-12-12] MEDS ORDERED: CYANOCOBALAMIN 1000 MCG/1 ML VIAL IM SCH (09:00)
== END 2016-09-22 16:20 | DRG 470 ==
LOC: EDUNIT# → EDBD → N.ED 16:17 → SUATTDRO 18:17 → N.EDINP 18:17 → N.3E 19:45
PROVIDERS: ADMIT Internal Medicine; ATTEND Hospitalist

== ENCOUNTER 2017-04-16 05:47 | Inpatient (IN) ==
[2017-04-16] MEDS ORDERED: SODIUM CHLORIDE 0.9% 1,000 ML IV STA (06:11)
[2017-04-16 06:31] LABS: Apearance,Urine CLOUDY (Clear); Bacteria,Urine Many /HPF (Few); Basophils % 0.3 % (0.0-0.8); Bilirubin,Urine Negative (Negative); Blood, Urine Moderate mg/dL (Negative); Eosinophils % 0.1 % (0.00-10.9); Glucose,Urine (UA) 150 mg/dL (Negative); Hematocrit 34.4 VOL% (35.7-47.0); Hemoglobin 10.7 GM/DL (12.0-16.0); Immature Granulocytes % 1.9 %; Ketones,Urine Negative (Negative); Lymphocytes # 1.9 10*3/uL (1.4-4.0); Lymphocytes % 17.9 % (21.3-54.2); Mean Corpuscular HGB Conc 31.1 GM/DL (32-36); Mean Corpuscular Hemoglobin 30 PG (27-34); Mean Corpuscular Volume 95.3 FL (87-102); Mean Platelet Volume 9.8 FL (9.6-12.0); Monocytes # 0.2 10*3/uL (0.11-0.8); Monocytes % 1.8 % (1.7-12.7); Neutrophils # 8.3 10*3/uL (1.4-7.4); Nitrite,Urine Positive (Negative); Platelet Count 215 T/CUMM (130-400); Protein,Urine 100 MG/DL; RBC,Urine 62 /HPF (0-4); Red Blood Count 3.61 MC/CUMM (3.8-5.5); Red Cell Distribution Width 14.6 % (9.3-17.3); Urine Color Yellow (Yellow); Urine Specific Gravity 1.011 (1.001-1.035); Urine Urobilinogen < 2.0 EU/DL (0.2-1.0); WBC,Urine 270 /HPF (0-6); White Blood Count 10.6 T/CUMM (4-12)
[2017-04-16 06:35] LABS: Barbiturates Screen,Urine Negative (Negative); Benzodiazepines Screen,Urine Negative (Negative); Cannabinoid Screen,Urine Negative (Negative); Opiate Screen,Urine Negative (Negative); Phencyclidine Screen,Urine Negative (Negative)
[2017-04-16 06:37] LABS: INR 1.1; PT Patient Result 11.4 SECS; Partial Thromboplastin Time 27.8 SECS (0-40)
[2017-04-16 06:51] LABS: Albumin 2.6 G/DL (3.4-5.0); Bilirubin,Total 0.4 MG/DL (0.2-1.0); Calcium 7.9 MG/DL (8.5-10.1); Osmolality,Calculated 299.8 MOS/KG (273-304); Potassium 3.8 MMOL/L (3.5-5.1); Total Protein 5.7 G/DL (6.4-8.3)
[2017-04-16] MEDS ORDERED: cefTRIAXone 1,000 MG in SODIUM CHLORIDE 0.9% 100 ML IV STA (07:41)
[2017-04-16] MEDS ORDERED: cefTRIAXone 1,000 MG VIAL ONE (07:47)
[2017-04-16] MEDS ORDERED: DOCUSATE SODIUM 100 MG CAPSULE PO PRN (08:38)
[2017-04-16] MEDS ORDERED: guaiFENesin/DM ER 600-30 MG TABLET PO PRN (08:38)
[2017-04-16] MEDS ORDERED: MORPHINE 2 MG/1 ML SYRINGE IV PRN (08:38)
[2017-04-16 08:39] LABS: Lactic Acid 5.4 MMOL/L (0.4-2.0)
[2017-04-16] MEDS ORDERED: SODIUM CHLORIDE 0.9% 1,000 ML IV ONE (09:06)
[2017-04-16] MEDS ORDERED: MAGNESIUM HYDROXIDE SUSP 30 ML UDCUP PO PRN (09:42)
[2017-04-16] MEDS: cefTRIAXone 1,000 MG in SYRINGE 1 EACH IV SCH (13:59)
[2017-04-16] MEDS: metroNIDAZOLE INJ 500 MG in PREMIX 1 EACH IV SCH ×2 (14:08→21:14)
[2017-04-16] MEDS: PANTOPRAZOLE 40 MG VIAL IV SCH (14:09)
[2017-04-16] MEDS: ENOXAPARIN 40 MG/0.4 ML SYRINGE SUBCUT SCH (14:09)
[2017-04-16] MEDS: SODIUM CHLORIDE 0.9% 1,000 ML IV SCH (14:09)
[2017-04-16] MEDS: CARBIDOPA/LEVODOPA 25-250 MG TABLET PO SCH ×2 (15:46→16:00)
[2017-04-16] MEDS: RIVASTIGMINE 3 MG CAPSULE PO SCH (15:59)
[2017-04-16 19:06] LABS: Bacteria Wet Mount Trace /HPF; Clue Cells None Seen /HPF (None Seen); Epithelial Cell Wet Mount Few /HPF (Few/HPF); RBC Wet Mount Rare /HPF; Trichomonas Wet Mount None Seen /HPF (None Seen); WBC Wet Mount Few /HPF; Yeast Wet Mount None Seen /HPF (None Seen)
[2017-04-16] MEDS: DOCUSATE SODIUM 100 MG CAPSULE PO SCH (21:13)
[2017-04-17] MEDS: SODIUM CHLORIDE 0.9% 1,000 ML IV SCH ×2 (00:30→13:59)
[2017-04-17 07:19] LABS: Basophils % 0.1 % (0.0-0.8); Hematocrit 30.2 VOL% (35.7-47.0); Hemoglobin 9.7 GM/DL (12.0-16.0); Immature Granulocytes % 1.1 %; Immature Granulocytes Absolute 0.09 #; Lymphocytes # 2.3 10*3/uL (1.4-4.0); Lymphocytes % 27.8 % (21.3-54.2); Mean Corpuscular HGB Conc 32.1 GM/DL (32-36); Mean Corpuscular Hemoglobin 30 PG (27-34); Mean Corpuscular Volume 92.6 FL (87-102); Mean Platelet Volume 9.8 FL (9.6-12.0); Monocytes # 0.8 10*3/uL (0.11-0.8); Neutrophils # 5.2 10*3/uL (1.4-7.4); Platelet Count 208 T/CUMM (130-400); Red Blood Count 3.26 MC/CUMM (3.8-5.5); Red Cell Distribution Width 14.8 % (9.3-17.3); White Blood Count 8.4 T/CUMM (4-12)
[2017-04-17 07:44] LABS: Calcium 7.8 MG/DL (8.5-10.1); Osmolality,Calculated 289.6 MOS/KG (273-304); Potassium 3.5 MMOL/L (3.5-5.1)
[2017-04-17] MEDS: RIVASTIGMINE 3 MG CAPSULE PO SCH ×2 (08:25→16:25)
[2017-04-17] MEDS: MULTIVITAMIN (CENTRUM) TABLET PO SCH (08:26)
[2017-04-17] MEDS: DOCUSATE SODIUM 100 MG CAPSULE PO SCH (08:26)
[2017-04-17] MEDS: ASPIRIN EC 81 MG TABLET PO SCH (08:26)
[2017-04-17] MEDS: cefTRIAXone 1,000 MG in SYRINGE 1 EACH IV SCH (08:26)
[2017-04-17] MEDS: ENOXAPARIN 40 MG/0.4 ML SYRINGE SUBCUT SCH (08:26)
[2017-04-17] MEDS: PANTOPRAZOLE 40 MG VIAL IV SCH (08:27)
[2017-04-17] MEDS: metroNIDAZOLE INJ 500 MG in PREMIX 1 EACH IV SCH (08:27)
[2017-04-17] MEDS: CARBIDOPA/LEVODOPA 25-250 MG TABLET PO SCH ×3 (08:37→16:25)
[2017-04-17] MEDS ORDERED: ZINC OXIDE PASTE 113 GM TUBE TOP PRN (12:13)
[2017-04-17] MEDS: SODIUM CHLORIDE 0.45% 1,000 ML IV SCH (13:58)
[2017-04-18] MEDS: SODIUM CHLORIDE 0.45% 1,000 ML IV SCH ×2 (01:40→17:15)
[2017-04-18] MEDS: DOCUSATE SODIUM 100 MG CAPSULE PO SCH ×3 (02:53→22:04)
[2017-04-18 06:56] LABS: Osmolality,Calculated 280.1 MOS/KG (273-304); Potassium 3.3 MMOL/L (3.5-5.1)
[2017-04-18] MEDS ORDERED: POTASSIUM CHLORIDE 20 MEQ TABLET PO PRN (07:39)
[2017-04-18] MEDS: cefTRIAXone 1,000 MG in SYRINGE 1 EACH IV SCH (08:37)
[2017-04-18] MEDS: PANTOPRAZOLE 40 MG VIAL IV SCH (08:40)
[2017-04-18] MEDS: ENOXAPARIN 40 MG/0.4 ML SYRINGE SUBCUT SCH (08:42)
[2017-04-18] MEDS: ASPIRIN EC 81 MG TABLET PO SCH (08:44)
[2017-04-18] MEDS: CARBIDOPA/LEVODOPA 25-250 MG TABLET PO SCH ×3 (08:45→17:24)
[2017-04-18] MEDS: MULTIVITAMIN (CENTRUM) TABLET PO SCH (08:45)
[2017-04-18] MEDS: RIVASTIGMINE 3 MG CAPSULE PO SCH ×2 (10:17→17:24)
[2017-04-18] MEDS ORDERED: ACETAMINOPHEN 500 MG TABLET PO PRN (14:22)
[2017-04-19] MEDS: SODIUM CHLORIDE 0.45% 1,000 ML IV SCH (06:25)
[2017-04-19 07:03] LABS: Basophils % 0.2 % (0.0-0.8); Eosinophils % 0.3 % (0.00-10.9); Hematocrit 30.3 VOL% (35.7-47.0); Immature Granulocytes % 1.1 %; Immature Granulocytes Absolute 0.12 #; Lymphocytes # 1.6 10*3/uL (1.4-4.0); Lymphocytes % 15.5 % (21.3-54.2); Mean Corpuscular Hemoglobin 30 PG (27-34); Mean Corpuscular Volume 89.6 FL (87-102); Mean Platelet Volume 9.3 FL (9.6-12.0); Monocytes # 0.9 10*3/uL (0.11-0.8); Monocytes % 8.2 % (1.7-12.7); Neutrophils # 7.8 10*3/uL (1.4-7.4); Neutrophils % 74.7 % (38.7-73.9); Platelet Count 265 T/CUMM (130-400); Red Blood Count 3.38 MC/CUMM (3.8-5.5); Red Cell Distribution Width 14.2 % (9.3-17.3); White Blood Count 10.5 T/CUMM (4-12)
[2017-04-19 07:31] LABS: Calcium 8.1 MG/DL (8.5-10.1); Osmolality,Calculated 279.4 MOS/KG (273-304); Potassium 3.2 MMOL/L (3.5-5.1)
[2017-04-19] MEDS ORDERED: amLODIPine 5 MG TABLET PO SCH (09:00)
[2017-04-19] MEDS ORDERED: POTASSIUM CHLORIDE 20 MEQ TABLET PO ONE (09:00)
[2017-04-19] MEDS: RIVASTIGMINE 3 MG CAPSULE PO SCH (09:48)
[2017-04-19] MEDS: CARBIDOPA/LEVODOPA 25-250 MG TABLET PO SCH (09:48)
[2017-04-19] MEDS: DOCUSATE SODIUM 100 MG CAPSULE PO SCH (09:48)
[2017-04-19] MEDS: ENOXAPARIN 40 MG/0.4 ML SYRINGE SUBCUT SCH (09:49)
[2017-04-19] MEDS: MULTIVITAMIN (CENTRUM) TABLET PO SCH (09:49)
[2017-04-19] MEDS: ASPIRIN EC 81 MG TABLET PO SCH (09:49)
[2017-04-19] MEDS: cefTRIAXone 1,000 MG in SYRINGE 1 EACH IV SCH (09:50)
[2017-04-19] MEDS: PANTOPRAZOLE 40 MG VIAL IV SCH (09:50)
[2017-04-19 12:05] VITALS: BP 149/65
== END 2017-04-19 11:55 | DRG 871 ==
LOC: EDUNIT# → N.ED 05:47 → N.EDINP 07:56 → N.2E 12:50
PROVIDERS: ADMIT Internal Medicine; ATTEND Internal Medicine